=== PATIENT | male | born 2000 | race Caucasian/White ===

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

== ENCOUNTER 2021-10-22 15:41 | Emergency (ER) | payer BC ==
[~2021-10-22] VITALS: Ht 193 cm; Wt 90.9 kg
[~2021-10-22 15:41] MED LIST changes: +CEPHALEXIN500 M1 PO
[2021-10-22 15:52] VITALS: TEMP 98
[2021-10-22 17:04] LABS: BASO % 0.7 % (0.0-2.0); EOS # 0.2 K/mm3 (0.0-0.7); EOS % 2.6 % (0.0-4.0); GRAN # 3.3 K/mm3 (1.4-6.5); GRAN % 54.3 % (42.2-75.2); HEMATOCRIT 43.7 % (36.0-47.0); HEMOGLOBIN 15.9 g/dl (12.5-16.1); LYMPH # 1.9 K/mm3 (1.2-3.4); LYMPH % 31.5 % (20.0-51.0); MEAN CELL VOLUME 87 fl (80.0-95.0); MEAN CORPUSCULAR HEMOGLOBIN 32 pg (26-32); MEAN CORPUSCULAR HGB CONC 36 g/dl (33.0-37.0); MEAN PLATELET VOLUME 10.7 fl (7.4-10.4); MONO # 0.7 K/mm3 (0.1-0.6); MONO % 10.7 % (1.7-9.3); PLATELET COUNT 263 K/mm3 (130-400); RED BLOOD COUNT 5.03 M/mm3 (4.20-5.60); REDCELL DISTRIBUTION WIDTH-CV 12.3 % (11.5-14.5)
[2021-10-22 17:21] LABS: ALANINE AMINOTRANSFERASE 20 U/L (0-55); ALBUMIN 4.3 gm/dL (3.5-5.0); ALKALINE PHOSPHATASE 103 U/L (40-150); ANION GAP 10 mmol/L (7-16); AST,SGOT 22 U/L (5-34); BILIRUBIN,TOTAL 0.7 mg/dL (0.2-1.2); BLOOD UREA NITROGEN 13 mg/dL (9-21); CALCIUM 9.6 mg/dL (8.4-10.2); CARBON DIOXIDE 23 mmol/L (22-29); CHLORIDE 108 mmol/L (98-107); CREATINE KINASE 212 U/L (30-200); CREATININE, serum 0.91 mg/dL (0.72-1.25); GLUCOSE 98 mg/dL (70-99); MAGNESIUM 2.2 mg/dL (1.6-2.6); POTASSIUM 3.6 mmol/L (3.5-4.5); SODIUM 141 mmol/L (136-145); TOTAL PROTEIN 7.2 gm/dL (6.2-8.1)
[2021-10-22 17:26] LABS: TROPONIN-I < 0.010 ng/mL (0.00-0.033)
[2021-10-22] MEDS ORDERED: PREDNISONE20 MG PO (18:40)
[2021-10-22 19:38] VITALS: BP 130/87; PULSE 50
== END 2021-10-22 19:40 | disposition home or self-care (01) ==
LOC: COL.ER 15:41
PROVIDERS: Emergency Medicine
DX: R00.2 Palpitations (principal); R07.81 Pleurodynia; Z28.310 Unvaccinated for COVID-19; Z20.822 Contact with and (suspected) exposure to COVID-19
CPT/HCPCS: J7030; J7512

== ENCOUNTER 2021-10-23 19:59 | Emergency (ER) | payer BC ==
[~2021-10-23] VITALS: Ht 193 cm; Wt 90.9 kg
[~2021-10-23 19:59] MED LIST changes: +PREDNISONE20 MG PO
[2021-10-23 20:10] VITALS: TEMP 98.2
[2021-10-23 22:52] VITALS: BP 141/70; PULSE 53
== END 2021-10-23 22:53 | disposition home or self-care (01) ==
LOC: COL.ER 19:59
DX: R07.89 Other chest pain (principal); R00.2 Palpitations; Z28.310 Unvaccinated for COVID-19